=== PATIENT | male | born 1935 | race Caucasian/White ===

== ENCOUNTER 2016-09-23 10:34 | Emergency (ER) | payer OTHER ==
[~2016-09-23] VITALS: Ht 170.2 cm; Wt 76.2 kg
[~2016-09-23 10:34] MED LIST: ASPIR 8181 MG PO; COZAAR 50MG TAB50 MG PO; FOLIC ACID 1 MG PO; KEFLEX500 MG PO; NIASPAN1000 MG PO; VITAMIN D1000 IU PO
--- NOTE | 2016-09-23 10:57 | ED NECK/BACK PAIN COMPLAINT ---
History of Present Illness General Chief Complaint: Low Back Pain/Injury Stated Complaint: LOW BACK PAIN Source: patient Exam Limitations: no limitations Vital Signs & Intake/Output Vital Signs & Intake/Output Vital Signs Date Time Temp Pulse Resp B/P B/P Pulse O2 O2 Flow FiO2 Mean Ox Delivery Rate 09/23 1226 97.4 55 18 125/58 99 Room Air 09/23 1041 97.9 66 18 150/55 97 Room Air Allergies Coded Allergies: MDX - Cefprozil (From CEFZIL) (UNKNOWN 04/17/14) Triage Note: 81 Y/O MALE C/O LOW BACK PAIN RADIATING INTO L LEG; ONSET TUES AND WORSENING EVERY DAY SINCE ONSET. DENIES INJURY OR TRAUMA. DENIES OTHER COMPLAINTS. APPEARS UNCOMFORTABLE WITH POSITIONAL CHANGES THOUGH STEADY GAIT NOTED ONCE AMBULATORY Triage Nurses Notes Reviewed? yes Onset: Abrupt Duration: week(s): (1.5), continues in ED, getting worse, intermittent Timing: single episode today Quality/Severity: moderate, sharpness Location: lumbar spine, paraspinous muscles Radiation: none Context: fall/near fall (1 MONTH AGO) Method of Injury: fall Loss of Consciousness: no loss of consciousness Modifying Factors: movement Associated Symptoms: lower back pain, muscle spasm HPI: 81-year-old male history of hypertension and hyperlipidemia presents complaining of pain in his lower back for the past 10 days. Patient reports pain started on both sides of the lower back about 10 days ago and has been gradually worsening. Pain is intermittently worse with certain positions or getting up from a sitting to standing position. He has not taken any medication for the pain. He describes the pain as sharp that is located on both his lower back and does not radiate. He does report that he fell approximately one month ago and landed on his lower back notes that he did not have any pain after the fall until about 10 days ago. Currently the pain is very mild and he rates it as a 3 out of 10. With certain movements and positioning it does get up as bad as 8/10. He denies any chest pain, shortness of breath, dysuria, fever, bowel or bladder dysfunction, abdominal pain, numbness, tingling, or any previous back surgeries. (SHAHID SHAH,EDITA) Reconcile Medications Acetaminophen 500 MG TABLET 1-2 TAB PO Q6 PRN pain Aspirin (Ecotrin) 81 MG TABLET. 1 TAB PO DAILY HEART HEALTH (Reported) Cholecalciferol (Vitamin D3) (Unknown Strength) TABLET (Unknown Dose) PO DAILY VITAMIN D SUPPLEMET (Reported) Ezetimibe (Zetia) 10 MG TABLET 1 TAB PO DAILY HIGH CHOLESTROL (Reported) Folic Acid (Unknown Strength) TABLET (Unknown Dose) PO DAILY FOLIC ACID SUPPLEMENT (Reported) Losartan (Cozaar) (Unknown Strength) TAB (Unknown Dose) PO DAILY BP (Reported ) Metoprolol Tartrate 25 MG TABLET 1 TAB PO BID HIGH BLOOD PRESSURE (Reported) Niacin (Niaspan) 1,[address] 1 TAB PO BID CHOLESTEROL (Reported) Tizanidine HCl (Zanaflex) 2 MG CAPSULE 1 CAP PO BIDP PRN pain (JANE LENTZ,SONYA) Past History Travel History Traveled to [place] past 21 day No Medical History Any Pertinent Medical History? 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 No (SHAHID SHAH,EDITA) Review of Systems Review of Systems Constitutional: Reports: no symptoms. Eyes: Reports: no symptoms. Ears, Nose, Throat, Mouth: Reports: no symptoms. Respiratory: Reports: no symptoms. Cardiovascular: Reports: no symptoms. Gastrointestinal/Abdominal: Reports: no symptoms. Musculoskeletal: Reports: see HPI, back pain. Skin: Reports: no symptoms. Neurological/Psychological: Reports: no symptoms. All Other Systems: Reviewed and Negative (SHAHID SHAH,EDITA) Physical Exam Physical Exam General Appearance: well developed/nourished, no apparent distress, alert, awake , comfortable Head: atraumatic, normal appearance Eyes: Bilateral: normal appearance, PERRL, EOMI, normal inspection. Ears, Nose, Throat, Mouth: hearing grossly normal, moist mucous membrane, Tympanic normal Neck: normal inspection, supple, full range of motion, normal alignment Respiratory: normal breath sounds, chest non-tender, no respiratory distress Cardiovascular: regular rate/rhythm, normal peripheral pulses Peripheral Pulses: 2+ dorsalis pedis (R), 2+ dorsalis pedis (L) Gastrointestinal: normal bowel sounds, soft, non-tender, no organomegaly Back: normal inspection, normal range of motion, muscle spasm, no vertebral tenderness, lumbar paraspinous muscles are tender to palpation bilaterally. Extremities: non-tender, normal range of motion Straight Leg Raising: Right: Negative. Left: Negative. Sensory: Medial Le: L4R, L4L. Top of Foot: 2: L5R, L5L. Sole of Foot: 2: SIR, ANDRA. Motor: Deficit L4 Right: No Deficit L4 Left: No Deficit L5 Right: No Deficit L5 Left: No Deficit S1 Right: No Deficit S1 Right: No DTR: Deficit L4 Left: No Deficit L4 Right: No Deficit S1 Left: No Deficit S1 Right: No Neurologic/Psych: no motor/sensory deficits, awake, alert, oriented x 3, normal gait, normal mood/affect Skin: intact, normal color, warm/dry (EDITA KEY PA-C) Progress Differential Diagnosis: cauda equina syn, herniated disc, myofascial strain, pyelo/UTI, sciatica, spinal cord inj, T/L spine injury, ureterolithiasis Plan of Care: Orders Procedure Date/time Status XRY-LUMBOSACRAL SPINE 4 VIEWS 09/23 1108 Active Patient will have an x-ray of the lumbar spine to rule out fracture or lytic lesions. Pain is reproducible etiology is likely musculoskeletal. 12:17 PM: X-rays within normal limits. Patient discharged home with Tylenol extra strength and Zanaflex to use as needed for pain. Advised to follow-up with his primary care doctor for further evaluation. Patient may need MRI if physical therapy in the future. Discussed all results with patient and he agrees the plan. case discussed with Dr. Issa and she agrees with the plan. (SHAHID SHAH,EDITA) Comments: PATIENT: PAVEL MATTSON PRESENT AGE: 81 PATIENT ACCOUNT NO: [id number] : 37 LOCATION: [facility] ORDERING PHYSICIAN: EDITA KEY PA-C SERVICE DATE: 09/23/16-1108 EXAM TYPE: RAD - XRY-LUMBOSACRAL SPINE 4 VIEWS EXAMINATION: XR LUMBOSACRAL SPINE CLINICAL INFORMATION: Low back pain after fall COMPARISON: None TECHNIQUE: AP and lateral views of the lumbosacral spine were obtained. FINDINGS: There is mild curvature of the lower lumbar spine to the left. Bone alignment is otherwise normal. No fracture or dislocation is seen. Disc spaces are normal. 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 There is evidence of atherosclerotic disease. IMPRESSION: No fracture seen. DICTATED BY: JESSIKA SOLO MD DATE/TIME DICTATED:09/23/161148 MANNEQUIN REFINISHER:LAVON DATE/TIME TRANSCRIBED:09/23/161148 CONFIDENTIAL, DO NOT COPY WITHOUT APPROPRIATE AUTHORIZATION. <Electronically signed in Other Vendor System> SIGNED BY: JESSIKA SOLO MD [id number] (EDITA KEY PA-C) Departure Departure Disposition: HOME OR SELF CARE Condition: Stable Clinical Impression Primary Impression: Low back pain Qualifiers: Chronicity: acute Back pain laterality: bilateral Sciatica presence : without sciatica Qualified Code: M54.5 - Low back pain Referrals: ARMANDO LENTZ,PAVEL Love (PCP/Family) Additional Instructions: Rest, avoid heavy lifting, bending, or excessive physical activity. Use Tylenol 1000 mg every 6 hours as needed for pain. Zanaflex as a muscle relaxer that can be used every 8 hours as needed for pain. zanaflex can cause drowsiness. Make a follow-up appointment with your primary care doctor this week to review all results of today's visit. Return to the emergency department with any concerns. Please go over all results of today's visit with your primary care doctor. Contact your primary care doctor to let them know you were here in the emergency room. There may be nonspecific findings which may not be related to your visit today here in the emergency room but may require further evaluation and chronic monitoring by your primary care doctor. If you had a laceration today the chance of foreign body always remains. You should follow-up with your primary care doctor for recheck in 3-5 days for a wound check. If you had an x-ray done there is a chance that a fracture could have been missed on initial read and you should follow-up with your primary care doctor for repeat x-rays if symptoms persist. If your blood pressure was elevated here in the emergency room please have rechecked by her primary care doctor within the next 48 hours by your primary care doctor. If you were prescribed a narcotic here in the emergency room or any type of controlled substances you're not allowed to drive while taking this medication or operate any type of heavy machinery. Narcotics can make you feel lightheaded dizziness nausea and can cause constipation. You may need to [employer] a stool softener. Thank you for choosing [facility] emergency room. Please return to the emergency room immediately if you have any other concerns worsening of symptoms. Departure Forms: Customer Survey General Discharge Information Prescriptions: Current Visit Scripts Tizanidine HCl (Zanaflex) 1 CAP PO BIDP PRN pain #20 CAP Acetaminophen 1-2 TAB PO Q6 PRN pain #30 TAB (EDITA KEY PA-C) PA/COMMUNITY CENTER DIRECTOR Co-Sign Statement Statement: ED Attending supervision documentation- [X] I saw and evaluated the patient. I have also reviewed all the pertinent lab results and diagnostic results. I agree with the findings and the plan of care as documented in the PA's/COMMUNITY CENTER DIRECTOR's documentation. [X] I have reviewed the ED Record and agree with the PA's/COMMUNITY CENTER DIRECTOR's documentation. [] Additions or exceptions (if any) to the PAs/COMMUNITY CENTER DIRECTOR's note and plan are summarized below: [] (JANE LENTZ,SONYA)
[2016-09-23] MEDS ORDERED: METOPROLOL TART25 M1 PO (11:20)
[2016-09-23] MEDS ORDERED: ZETIA10 M1 PO (11:20)
--- NOTE | 2016-09-23 12:07 | RADIOLOGY REPORT ---
EXAMINATION: XR LUMBOSACRAL SPINE CLINICAL INFORMATION: Low back pain after fall COMPARISON: None TECHNIQUE: AP and lateral views of the lumbosacral spine were obtained. FINDINGS: There is mild curvature of the lower lumbar spine to the left. Bone alignment is otherwise normal. No fracture or dislocation is seen. Disc spaces are normal. 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 There is evidence of atherosclerotic disease. IMPRESSION: No fracture seen.
[2016-09-23] MEDS ORDERED: ZANAFLEX2 M2 PO (12:21)
[2016-09-23] MEDS ORDERED: ACETAMINOPHEN500 M4 PO (12:21)
[2016-09-23 12:26] VITALS: BP 125/58
== END 2016-09-23 12:30 ==
LOC: ERH 10:34
DX: M54.5 Low back pain (principal)
CPT/HCPCS: 72110

== ENCOUNTER → 2017-05-18 | Day surgery (SDC) | payer OTHER ==
--- NOTE | 2017-05-17 15:00 | History & Physical Pre-Op ---
General Information and HPI History of Present Illness: Patient presents for evaluation of inguinal hernias. They have been present since and observed. Now they are becoming symptomatic with pain. No n/v/ change to bowel or bladder habits. He had right side repaired twice, without mesh in 1969's. It has since recurred. Left side is bigger. Allergies/Medications Allergies: Coded Allergies: cefprozil (From CEFZIL) (RASH 05/13/17) Home Med list Aspirin (Ecotrin*) 81 MG TABLET.DR 1 TAB PO DAILY HEART/BLOOD (Reported) Ezetimibe (Zetia) 10 MG TABLET 1 TAB PO DAILY HIGH CHOLESTROL (Reported) Metoprolol Tartrate 25 MG TABLET 1 TAB PO BID HIGH BLOOD PRESSURE (Reported) Niacinamide (Niacin) 500 MG TABLET 1 TAB PO BID CHOLESTEROL - OTC (Reported) Past History Medical History Neurological: NONE EENT: NONE Cardiovascular: CHF, hypertension, hyperlipidemia Respiratory: NONE Gastrointestinal: GERD Hepatic: NONE Renal: NONE Musculoskeletal: NONE Psychiatric: NONE Endocrine: NONE Blood Disorders: NONE Cancer(s): non-hodgkin lymphoma 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 He reports no fatigue, no fever, no night sweats, no significant weight gain, no significant weight loss, and no exercise intolerance. He reports no abnormal moles, no jaundice, no hives, no eczema, and no rashes. He reports no swollen glands and no neck stiffness. He reports no cough, no wheezing, no shortness of breath, and no coughing up blood. He reports no chest pain, no arm pain on exertion, no shortness of breath when walking, no shortness of breath when lying down, no palpitations, and no known heart murmur. He reports normal appetite, no abdominal pain, no vomiting, no vomiting blood, no bloating, no diarrhea, no belching, no constipation, no regurgitation, and no rectal bleeding. He reports no incontinence, no difficulty urinating, no hematuria, and no increased frequency. Exam & Diagnostic Data Physical Exam: Patient is a 81-year-old male. Constitutional: General Appearance: healthy-appearing, well-nourished, and well- developed. Level of Distress: no acute distress. Ambulation: ambulating normally. Head: Head: normocephalic and atraumatic. Cardiovascular: Heart Auscultation: normal S1 and S2; no murmurs, rubs, or gallops; and regular rate and rhythm. Lungs: Respiratory effort: no dyspnea. Percussion: no dullness, flatness, or hyperresonance. Auscultation: no wheezing, rales/crackles, or rhonchi and breath sounds normal, good air movement, and clear to auscultation. Abdomen: Inspection and Palpation: no tenderness, guarding, masses, rebound tenderness, or CVA tenderness and soft and non-distended. Bowel Sounds: normal. Liver: non-tender and no hepatomegaly. Spleen: non-tender and no splenomegaly. Hernia: inguinal (bilateral. right reducible under healed scar. Left incarcerated, moderate size. nontender.). Skin: Inspection and palpation: no rash, lesions, ulcer, induration, nodules, jaundice, or abnormal nevi and good turgor. Musculoskeletal:: Extremities: no cyanosis, edema, varicosities, or palpable cord. Motor Strength and Tone: normal tone and motor strength. Joints, Bones, and Muscles: no contractures, malalignment, tenderness, or bony abnormalities and normal movement of all extremities. Assessment/Plan Assessment/Plan: Unilateral recurrent inguinal hernia - right recurrent hernia is reducible. Left side (non-recurrent) is incarcerated. Recommend laparoscopic repair of both. Preop cards assessment. K40.91: Unilateral inguinal hernia, without obstruction or gangrene, recurrent 2. Left inguinal hernia K40.90: Unilateral inguinal hernia, without obstruction or gangrene, not specified as recurrent Discussion Notes Discussed laparoscopic preperitoneal hernia repair with mesh, the need for general anesthesia to perform it and the outpatient nature of surgery. Discussed the outcomes of surgery including 3-5% recurrence rate, 1% infection and bleeding risk. Discussed the permanent nature of mesh for repair and need for removal if infection occurs. Discussed the small risk of testicular vessel injury and vas deferens injury (males). As Ranked By This Provider Problem List: 1. Left inguinal hernia 2. Recurrent right inguinal hernia
[~2017-05-18] VITALS: Ht 170.2 cm; Wt 78.9 kg
[~2017-05-18] MED LIST changes: +ACETAMINOPHEN500 M4 PO; -ASPIR 8181 MG PO; +ASPIRIN EC81 M1 PO; +METOPROLOL TART25 M1 PO; +NIACIN500 M6 PO; +ZANAFLEX2 M2 PO; +ZETIA10 M1 PO
--- NOTE | 2017-05-18 13:10 | Operative Report ---
Operative/Inv Procedure Report Surgery Date: 05/18/17 Name of Procedure: Laparoscopic repair recurrent right inguinal hernia Laparoscopic primary repair left inguinal hernia Pre-Operative Diagnosis: Bilateral inguinal hernia Post-Operative Diagnosis: Same Estimated Blood Loss: scant Surgeon/Crop Grain Or Livestock Farm Manager: Bolivar LENTZ,Andrea Padron/Jace CACERES Anesthesia: general endotracheal tube Implants: Parietex mesh Operative Indication: Patient with incarcerated left inguinal hernia. He had prior right inguinal hernia repair in the 1970s. It also has recurred and he presents for repair of both Operative/Procedure Note Note: After consent patient is brought to the operating room laid supine. General anesthesia was obtained and the abdomen was prepped and draped. Skin was anesthetized with local anesthesia and a transverse infraumbilical incision made sharply. We identified the rectus fascia and incised transversely. Stay sutures were placed. Rectus muscle was retracted laterally and a dissecting balloon placed posterior to it. It was inflated under direct vision the camera and replaced with a blunt Warren port. Gas was instilled. 2, 5 mm ports were placed in the infraumbilical midline after local anesthesia was instilled and under direct vision and camera. Began our dissection at the pubis and delineated the symphysis. Maciel's ligament was identified and cleared on the right side. Then dissected laterally and developed the iliopubic tract. There was both a direct and indirect component to the left-sided hernia both hernia defects were reduced and reflected medially. There is a much larger indirect sac. The cord structures were circumferentially dissected. Once the dissection was completed a left -sided piece of Parietex mesh was placed in the cavity. It was placed around the cord structures re-create the internal ring and cover the femoral and direct spaces as well. It was tacked medially to keep it in proper position well. Turned attention to the contralateral side. In a similar fashion the dissection was carried forth. There is a very large direct recurrence through multiple defects. Tissue was reduced and reflected inferiorly. Cord structures were dissected free. Mesh was placed in a similar fashion and tacked similarly. Gas was allowed to escape on maintaining proper orientation of the mesh. The fascia was closed with 0 Vicryl suture. Skin incisions closed with 4-0 Vicryl. Steri-Strips and sterile dressing applied. Sponge and needle counts are correct. Findings: Pantaloon left Direct recurrent right CC: Ziggy LENTZ,Giovanni Love
== END ==
LOC: STS 02:30
DX: K40.91 Unilateral inguinal hernia, without obstruction or gangrene, recurrent (principal); K40.30 Unilateral inguinal hernia, with obstruction, without gangrene, not specified as recurrent; C85.90 Non-Hodgkin lymphoma, unspecified, unspecified site; I25.10 Atherosclerotic heart disease of native coronary artery without angina pectoris; I50.9 Heart failure, unspecified; I10 Essential (primary) hypertension
CPT/HCPCS: C1781; J2250